=== PATIENT | female | born 1995 | race Caucasian/White ===

== ENCOUNTER 2021-02-10 20:53 | Emergency (ER) | payer OTHER ==
[2021-02-10 21:04] VITALS: BMI 24.0
[2021-02-10 22:02] LABS: HEMATOCRIT 41.3 % (32.4-45.2); MCH 29.4 pg (25.7-33.7); MCHC 33.9 g/dl (32.0-36.0); MEAN CELL VOLUME 86.7 fl (80-96); MEAN PLT VOLUME 10.1 fl (7.5-11.1); PLATELET COUNT 236 10^3/uL (134-434); RBC 4.77 M/mm3 (3.60-5.2); WHITE BLOOD COUNT 11.2 K/mm3 (4.0-10.0)
[2021-02-10 22:20] LABS: CHLORIDE 105 mmol/L (98-107); SODIUM 140 mmol/L (136-145)
[2021-02-10 22:22] LABS: CALCIUM 9.3 mg/dL (8.5-10.1)
[2021-02-10 22:23] LABS: ALBUMIN 3.9 g/dl (3.4-5.0); ANION GAP 7 MMOL/L (8-16); BLOOD UREA NITROGEN 16.6 mg/dL (7-18); CO2 28 mmol/L (21-32); GLUCOSE,RANDOM 77 mg/dL (74-106)
[2021-02-10 22:26] LABS: CREATININE 0.8 mg/dL (0.55-1.3); SGOT/AST 10 U/L (15-37); SGPT/ALT 20 U/L (13-61)
[2021-02-10 22:27] LABS: BILIRUBIN,TOTAL 0.2 mg/dL (0.2-1)
[2021-02-10 22:28] LABS: TOT PROT 7.6 g/dl (6.4-8.2)
[2021-02-10 22:29] LABS: ALK PHOS 84 U/L (45-117)
[2021-02-10 23:36] LABS: ERYTHROCYTE SEDIMENTATION RATE 4 mm/hr (0-20)
[2021-02-11] MEDS ORDERED: ACETAMINOPHEN 1000 MG/100 ML VIAL (NON FORMULARY) IVPB ONE (00:11)
[2021-02-11] MEDS ORDERED: ACETAMINOPHEN INJECTION 100 ML IVPB ONE (00:19)
[2021-02-11 00:58] VITALS: BP 108/53; PULSE 73; TEMP 98.1
== END 2021-02-11 01:08 | disposition home or self-care (01) ==
LOC: JER 20:53
DX: R07.9 Chest pain, unspecified (principal)
CPT/HCPCS: 36415; 71046-TC-FY; 80053; 82550; 84443; 84484; 84703; 85027; 85379; 85651; 86140; 93005; 93010; 99284-25; C9803; J0131; U0003; U0005